=== PATIENT | male | born 1995 | race Caucasian/White ===

== ENCOUNTER 2017-02-11 11:13 | Emergency (ER) | payer MEDICAID ==
[~2017-02-11] VITALS: Ht 170.2 cm; Wt 67.0 kg
[2017-02-11 11:14] VITALS: Ht 170.2 cm; Wt 67.0 kg
--- NOTE | 2017-02-11 12:26 | ERD ---
ER Documentation Chief Complaint Date/Time DATE: 02/11/17 TIME: 12:21 Chief Complaint lt ear pain , hurt while wrestling HPI Patient is a 21-year-old male who presents with left outer ear pain 1 week. Patient states that he was wrestling approximately 1 week ago when he developed a "cauliflower ear." Patient denies any active bleeding or discharge. Patient states he has not had the affected area drained. Patient states this is the first time he developed "cauliflower ear". Patient denies any fevers, chills, nausea, vomiting, chest pain, shortness of breath, neck pain, back pain, head trauma, loss of consciousness. ROS All systems reviewed and are negative except as per history of present illness. PMhx/Soc Medical and Surgical Hx: pt denies Medical Hx, pt denies Surgical Hx Hx Alcohol Use: No Hx Substance Use: No Hx Tobacco Use: No Smoking Status: Never smoker FmHx Family History: No diabetes Physical Exam Vitals Vital Signs Date Time Temp Pulse Resp B/P Pulse Ox O2 Delivery O2 Flow Rate FiO2 02/11/17 11:14 97.6 68 16 144/61 100 Physical Exam GENERAL: Well-developed, well-nourished male. Appears in no acute distress. Speaking in full sentences HEAD: Normocephalic, atraumatic. No deformities or ecchymosis. EYE: Pupils equal, round, and reactive to light. EOMs intact. No conjunctival erythema. No eye discharge. ENT: Left external ear noted to have small auricular hematoma in upper helix. Nontender to palpation. No active drainage or bleeding. Auditory canals clear bilaterally. TM visualized bilaterally, non-erythematous, non-bulging. Nasal mucosa pink with no discharge. Oropharynx is pink without any tonsillar erythema or exudates. No uvula deviation. No kissing tonsils. NECK: Supple. No meningismus. Normal ROM of the neck. LUNG: Clear to auscultation bilaterally. No rhonchi, wheezing, rales or coarse breath sounds. HEART: Regular rate and rhythm. No murmurs, rubs or gallops. EXTREMITIES: Equal pulses bilaterally. No peripheral clubbing, cyanosis or edema. No unilateral leg swelling. NEUROLOGIC: Alert and oriented to person, place and time. Moving all four extremities. 5/5 strength in all extremities. Normal speech. Steady gait. SKIN: Normal color. Warm and dry. No rashes or lesions. Procedures/MDM MEDICAL DECISION MAKING: This is a 21-year-old male who presents with left external ear pain 1 week status post wrestling injury. Vital signs were reviewed. Patient was afebrile. Patient was not hypoxic. Ear exam auricular hematoma of the left upper helix. Using an 18-gauge needle, I attempted to aspirate the affected area. Minimal blood discharge expressed from the affected site. Given these findings, the patient's presentation is most consistent with auricular hematoma. I have a much lower clinical suspicion for otitis externa, acute otitis media, tympanic membrane perforation, mastoiditis, otic barotrauma, TMJ dysfunction, cellulitis , abscess formation. I advised patient to follow-up with an ENT specialist for further management of his presentation. I advised the patient on the importance immediate drainage in the future to avoid deformity and cartilage injury. DISCHARGE: At this time, patient is stable for discharge and outpatient management. I have instructed the patient to follow-up with his/her primary care physician in 1-2 days. I advised the patient to follow-up with an ENT specialist in the next 1- 2 days for further management of his symptoms.. I have instructed the patient to promptly return to the ER at any time for any new or worsening symptoms including increased pain, fever, swelling, discharge or hearing loss. The patient and/or family expressed understanding of and agreement with this plan. All questions were answered. Home care instructions were provided. Departure Diagnosis: Primary Impression: Hematoma of auricle Encounter type: initial encounter Laterality: left Qualified Code: S00.432A - Hematoma of auricle, left, initial encounter Condition: Stable Patient Instructions: Hematoma Referrals: DARSHAN FALK MD, STEPHEN H MD EUBANKS, HAYWARD L. M.D. Additional Instructions: Call your primary care doctor TOMORROW for an appointment during the next 1-2 days.See the doctor sooner or return here if your condition worsens before your appointment time. Patient will need to follow up with ENT specialist. NAE WRIGHT PA-C Feb 11, 2017 12:26 NAE WRIGHT PA-C Feb 11, 2017 12:26
== END 2017-02-11 12:31 | disposition home or self-care (01) ==
LOC: FTE 11:13
DX: S00.432A Contusion of left ear, initial encounter (principal); X58.XXXA Exposure to other specified factors, initial encounter; Y92.9 Unspecified place or not applicable
CPT/HCPCS: 10160; Z7502